=== PATIENT | female | born 1955 | race Caucasian/White ===

== ENCOUNTER 2016-11-03 15:06 | Emergency (ER) | payer MEDICARE ==
[~2016-11-03] VITALS: Ht 160 cm; Wt 66.3 kg
[2016-11-03] MEDS ORDERED: TIZA2CAP3 PO (15:20)
[2016-11-03] MEDS ORDERED: METO37.5 PO (15:20)
[2016-11-03] MEDS ORDERED: BRIL1TAB PO (15:20)
[2016-11-03] MEDS ORDERED: OMEP40CA2 PO (15:20)
[2016-11-03] MEDS ORDERED: ASPI81TA85 PO (15:20)
[2016-11-03] MEDS ORDERED: PREG25CA PO (15:20)
[2016-11-03] MEDS ORDERED: OXYC-517 PO (15:20)
[2016-11-03] MEDS ORDERED: MAGN400C3 PO (15:20)
[2016-11-03] MEDS ORDERED: OXYC-141 (15:20)
[2016-11-03] MEDS ORDERED: LISI-538 PO (15:20)
[2016-11-03] MEDS ORDERED: NITR0.4S14 SL (15:22)
[2016-11-03] MEDS ORDERED: ASPIRIN 81 MG CHEW TABLET PO ONE (16:00)
[2016-11-03 16:14] LABS: BASO # 0.1 K/mm3 (0.0-0.2); BASO % 0.9 % (0.0-1.0); EOS # 0.5 K/mm3 (0.0-0.50); EOS % 5.9 % (0.0-3.0); LARGE UNSTAINED CELL # 0.2 K/mm3 (0.0-0.4); LARGE UNSTAINED CELL % 1.8 % (0.0-4.0); LYMPH # 2.5 K/mm3 (1.5-4.5); LYMPH % 28.6 % (24.0-44.0); MEAN CORPUSCULAR HEMOGLOBIN 31.3 pg (27.0-33.0); MEAN CORPUSCULAR HGB CONC 35.3 g/dl (32.0-36.5); MEAN CORPUSCULAR VOLUME 88.6 fl (80.0-96.0); MONO # 0.6 K/mm3 (0.0-0.8); NEUTROPHILS # 4.6 K/mm3 (1.8-7.7); NEUTROPHILS % 55.9 % (36.0-66.0); PLATELET COUNT, AUTOMATED 231 k/mm3 (150-450); RED CELL DISTRIBUTION WIDTH 13.1 % (11.5-14.5); WHITE BLOOD COUNT 8.2 K/mm3 (4.0-10.0)
[2016-11-03 16:34] LABS: ANION GAP 6 MEQ/L (8-16); BLOOD UREA NITROGEN 17 MG/DL (7-18); CALCIUM LEVEL 9.4 MG/DL (8.5-10.1); CARBON DIOXIDE LEVEL 28 MEQ/L (21-32); CHLORIDE LEVEL 105 MEQ/L (98-107); CREATININE FOR GFR 0.84 MG/DL (0.55-1.02); GLOMERULAR FILTRATION RATE > 60.0 (>51); GLUCOSE, FASTING 109 MG/DL (70-105); POTASSIUM SERUM 4.1 MEQ/L (3.5-5.1); SODIUM LEVEL 139 MEQ/L (136-145)
[2016-11-03] MEDS ORDERED: AMLO25TA PO (17:47)
--- NOTE | 2016-11-03 17:50 | REP ---
Portable chest: Single view: History: Chest pain. Comparison study: No comparison. Findings: The lungs are somewhat hyperinflated but free of infiltrate. Pleural angles are sharp. Heart size is normal. Pulmonary vasculature is not increased. No significant bony abnormality is seen. EKG monitoring electrodes overlie the chest. Impression: Hyperinflation otherwise no acute disease. Signed by Mathew Espinoza MD 11/03/2016 07:39 P
[2016-11-03 17:53] VITALS: BP 121/70
--- NOTE | 2016-11-04 08:17 | ECGEPIP ---
Stationary ECG Study [facility] - ED Test Date: 2016-11-03 Pat Name: FOREIGN RAMIREZ Department: Room: - Gender: F [employer]: rn : 1955 Requested By: INGRID Mckenzie Order Number: [id number] Reading MD: Teresa Fry Measurements Intervals [place] Rate: 57 P: 47 WI: 131 QRS: 71 QRSD: 86 T: 55 QT: 381 QTc: 372 Interpretive Statements SINUS BRADYCARDIA LOW VOLTAGE LIM[place] NO PRIOR FOR COMPARISON Electronically Signed On 11-04-2016 8:17:43 EDT by Teresa Fry
== END 2016-11-03 18:06 | disposition home or self-care (01) ==
LOC: M ED 15:06
DX: R07.89 Other chest pain (principal); I20.9 Angina pectoris, unspecified; R06.02 Shortness of breath; I25.2 Old myocardial infarction; F17.210 Nicotine dependence, cigarettes, uncomplicated; Z98.61 Coronary angioplasty status; Z88.0 Allergy status to penicillin; Z88.2 Allergy status to sulfonamides; Z79.82 Long term (current) use of aspirin; Z79.899 Other long term (current) drug therapy